=== PATIENT | female | born 1985 | race Caucasian/White ===

== ENCOUNTER → 2017-04-30 | Outpatient (CLI) | payer BC ==
[2017-04-30 10:49] LABS: Basophils % (A) 1 %; CH 35.8; CHCM 35.4; Eosinophils # (A) 0.1 k/uL (0-0.7); Eosinophils % (A) 1 %; HCT 37.3 % (34.0-46.0); HDW 2.81; Luc # (Auto) 0.11; Luc % (Auto) 1; Lymphocytes # (A) 1.7 k/uL (1.0-4.8); Lymphocytes % (A) 22 %; MCH 35.4 pg (25.0-35.0); MCHC 34.8 g/dL (31.0-37.0); MCV 101.8 fL (80.0-100.0); Macrocytosis Slight; Mean Platelet Volume 6.4; Monocytes # (A) 0.3 k/uL (0-1.0); Monocytes % (A) 4 %; Neutrophils # (A) 5.7 k/uL (1.3-7.7); Neutrophils % (A) 71 %; RBC 3.67 m/uL (3.80-5.40); RDW 13.5 % (11.5-15.5); WBC (Perox) 8.64
[2017-04-30 15:28] LABS: Treponemal Ab Non-Reactive (Non-Reactive)
== END | disposition home or self-care (01) ==
LOC: LABWHC1 09:10
PROVIDERS: ATTEND Midwife
DX: Z36 Encounter for antenatal screening of mother (principal)
CPT/HCPCS: 36415; 82950; 85025; 86780; 87390

== ENCOUNTER → 2017-05-10 | Outpatient (CLI) | payer BC ==
--- NOTE | 2017-05-10 12:47 | US ---
EXAMINATION TYPE: US pelvic limited DATE OF EXAM: 05/10/2017 COMPARISON: NONE CLINICAL HISTORY: R19.09 mass in groin,R10.30 LOWER ABD PAIN. Patient is 27 weeks and felt p alpable area within right side of her pubis, patient states she can feel is more when standing Varicose vessels noted at the area of complaint adjacent to uterus in superficial soft tissue. office closed from 12-1, attempted to call twice with no luck. I will try again after 1pm to get ne w order and relay results IMPRESSION: Site of clinical concern corresponds to a varicosity.
== END ==
LOC: RADUSWWP 11:52
PROVIDERS: ATTEND Internal Medicine Geriatric Medicine
DX: R10.30 Lower abdominal pain, unspecified (principal)
CPT/HCPCS: 76857

== ENCOUNTER 2017-07-15 12:08 | Emergency (ER) | payer BC ==
--- NOTE | 2017-07-15 12:41 | ED ---
General Adult HPI - General Chief complaint: Extremity Problem,Nontraumatic Stated complaint: Poss Blood Clot L Leg Time Seen by Provider: 07/15/17 12:27 Source: patient, RN notes reviewed Mode of arrival: ambulatory Limitations: no limitations - History of Present Illness Initial comments: Patient 32-year-old female who is approximately 37 weeks by ultrasound , who presents emergency room today with chief complaint of pain to the left side. She does admit that she felt severe leg cramp last night. She states she woke up this morning it was gone. She was at the gym earlier today had another cramp. She states she is worried about possible blood she doesn't that she's had some leg cramps but not anything as severe as this. States that this time she currently comfortable. She denies any other complaints or associated symptoms currently. Patient denies any recent fever, chills, shortness of breath , chest pain, back pain, abdominal pain, nausea or vomiting, numbness or tingling, dysuria or hematuria, constipation or diarrhea, headaches or visual changes, or any other complaints. - Related Data Home Medications Medication Instructions Recorded Confirmed Aspirin 81 mg PO HS 07/15/17 07/15/17 Cholecalciferol [Vitamin D3] 1,000 unit PO HS 07/15/17 07/15/17 Folic Acid 0.4 mg PO HS 07/15/17 07/15/17 Ipl-Xbpb-[id number] Acid 1 cap PO HS 07/15/17 07/15/17 [-U Capsule (formulary)] Progesterone, Micronized 200 mg PO HS 07/15/17 07/15/17 [Progesterone] Sertraline [Zoloft] 100 mg PO HS 07/15/17 07/15/17 Allergies Allergy/AdvReac Type Severity Reaction Status Date / Time No Known Allergies Allergy Verified 07/15/17 13:43 Review of Systems ROS Statement: Those systems with pertinent positive or pertinent negative responses have been documented in the HPI. ROS Other: All systems not noted in ROS Statement are negative. Past Medical History Past Medical History: No Reported History History of Any Multi-Drug Resistant Organisms: None Reported Additional Past Surgical History / Comment(s): right knee Past Psychological History: Anxiety Smoking Status: Never smoker Past Alcohol Use History: None Reported Past Drug Use History: None Reported General Exam - General Exam Comments Initial Comments: General: The patient is awake and alert, in no distress, and does not appear acutely ill. Eye: Pupils are equal, round and reactive to light, extra-ocular movements are intact. No nystagmus. There is normal conjunctiva bilaterally. No signs of icterus. Ears, nose, mouth and throat: There are moist mucous membranes and no oral lesions. Neck: The neck is supple, there is no tenderness or JVD. Cardiovascular: There is a regular rate and rhythm. No murmur, rub or gallop is appreciated. Respiratory: Lungs are clear to auscultation, respirations are non-labored, breath sounds are equal. No wheezes, stridor, rales, or rhonchi. Musculoskeletal: Normal ROM. Patient has negative Homans sign. Mild tenderness to the medial posterior distal third of left thigh. Strength 5/5. Sensation intact. Pulses equal bilaterally 2+. Neurological: A&O x 3. CN II-XII intact, There are no obvious motor or sensory deficits. Coordination appears grossly intact. Speech is normal. Skin: Skin is warm and dry and no rashes or lesions are noted. Psychiatric: Cooperative, appropriate mood & affect, normal judgment. Limitations: no limitations Course Vital Signs 07/15/17 12:18 Temperature 98.6 F Pulse Rate 105 H Respiratory 16 Rate Blood Pressure 158/69 O2 Sat by Pulse 98 Oximetry Medical Decision Making - Medical Decision Making Patient's ultrasound is negative for any evidence of a DVT. There was evidence of Rolueax will be treating the GSV and CFV. She'll be discharged home. Disposition Clinical Impression: Leg cramp Disposition: HOME SELF-CARE Condition: Good Instructions: Leg Cramps (ED) Additional Instructions: Please use medication as discussed. Please follow-up with family doctor in the next 2 days of symptoms have not improved. Please return to emergency room if the symptoms increase or worsen or for any other concerns. Referrals: Kvng Payton MD [Primary Care Provider] - 1-2 days Time of Disposition: 14:01
--- NOTE | 2017-07-15 13:46 | US ---
EXAMINATION TYPE: US venous doppler duplex LE LT DATE OF EXAM: 07/15/2017 1:32 PM COMPARISON: NONE CLINICAL HISTORY: Pain. left leg pain, varicose veins, pt is 37 weeks SIDE PERFORMED: Left TECHNIQUE: The lower extremity deep venous system is examined utilizing real time linear array sonog sy with graded compression, doppler sonography and color-flow sonography. VESSELS IMAGED: External Iliac Vein (EIV) Common Femoral Vein Deep Femoral Vein Greater Saphenous Vein * Femoral Vein Popliteal Vein Small Saphenous Vein * Proximal Calf Veins (* superficial vessels) Left Leg: Appears negative for DVT. Rouleaux flow seen in GSV at origin of CFV. Grayscale, color doppler, spectral doppler imaging performed of the deep veins of the lower extremiti es. There is normal flow, compressibility, vascular waveforms. IMPRESSION: No sonographic evidence of deep venous thrombosis within the left lower extremity.
[2017-07-15 13:55] VITALS: BP 127/58; PULSE 80; RESP 17; TEMP 97.9
== END 2017-07-15 14:11 | disposition home or self-care (01) ==
LOC: EC 12:08
DX: O99.89 Other specified diseases and conditions complicating pregnancy, childbirth and the puerperium (principal); M79.605 Pain in left leg; O99.343 Other mental disorders complicating pregnancy, third trimester; F41.9 Anxiety disorder, unspecified; Z3A.37 37 weeks gestation of pregnancy; Z79.82 Long term (current) use of aspirin; Z79.899 Other long term (current) drug therapy
CPT/HCPCS: 99283

== ENCOUNTER 2018-07-22 13:39 | Emergency (ER) | payer BC ==
[2018-07-22] MEDS ORDERED: SODIUM CHLORIDE 0.9% 1,000 ML IV STA (14:47)
[2018-07-22] MEDS ORDERED: KETOROLAC 30 MG/ML 1 ML VIAL IVP STA (14:47)
[2018-07-22] MEDS ORDERED: diphenhydrAMINE 50 MG/ML 1 ML VIAL IVP STA (14:47)
[2018-07-22] MEDS ORDERED: METOCLOPRAMIDE 5 MG/ML 2 ML VIAL IVP STA (14:47)
[2018-07-22] MEDS ORDERED: ACETAMINOPHEN TAB 500 MG TAB PO STA (14:47)
--- NOTE | 2018-07-22 14:58 | ED ---
Headache HPI - General Chief Complaint: Headache Stated Complaint: Migraine/Facial numbness Time Seen by Provider: 07/22/18 14:11 Source: RN notes reviewed, old records reviewed Mode of arrival: ambulatory Limitations: no limitations - History of Present Illness Initial Comments: [id number]-aclq-[id number] female presents for his pharmacy and she will complain of a right-sided headache, migraine. She reports earlier today she had some changes to her left of vision. She reports she has this typical aura with a migraine. Patient states that she also is having some tenderness over the right facial bones and sinuses. She does report she's been having upper respiratory congestion. She denies any fevers or chills. She reports that she's had multiple episodes of vomiting just migraine headache. - Related Data Home Medications Medication Instructions Recorded Confirmed Cholecalciferol [Vitamin D3] 1,000 unit PO HS 07/15/17 07/22/18 Folic Acid 0.4 mg PO HS 07/15/17 07/22/18 Kfq-Zzvi-Vknwj Acid 1 cap PO HS 07/15/17 07/22/18 [-U Capsule (formulary)] Sertraline [Zoloft] 100 mg PO HS 07/15/17 07/22/18 Aspirin/Acetaminophen/Caffeine 1 tab PO DAILY PRN 07/22/18 07/22/18 [Excedrin Migraine Caplet] Ibuprofen [Motrin Ib] 400 mg PO Q6H PRN 07/22/18 07/22/18 LORazepam [Ativan] 1 mg PO DIRECTED PRN 07/22/18 07/22/18 Magnesium 200 mg PO DAILY 07/22/18 07/22/18 Multivitamin,Therapeutic [Thera] 1 tab PO DAILY 07/22/18 07/22/18 Previous Rx's Medication Instructions Recorded Amoxic-Pot Clav 875-125Mg 1 tab PO Q12HR #20 tablet 07/22/18 [Augmentin 875-125] Ondansetron Odt [Zofran Odt] 4 mg PO Q8HR PRN #12 tab 07/22/18 Allergies Allergy/AdvReac Type Severity Reaction Status Date / Time alcohol AdvReac MIGRAINE Verified 07/22/18 14:13 Review of Systems ROS Statement: Those systems with pertinent positive or pertinent negative responses have been documented in the HPI. ROS Other: All systems not noted in ROS Statement are negative. Past Medical History Past Medical History: No Reported History History of Any Multi-Drug Resistant Organisms: None Reported Additional Past Surgical History / Comment(s): right knee Past Psychological History: Anxiety Smoking Status: Never smoker Past Alcohol Use History: None Reported Past Drug Use History: None Reported General Exam - General Exam Comments Initial Comments: 33-year-old female. Alert and oriented. No acute distress. Limitations: no limitations General appearance: alert, in no apparent distress Head exam: Present: atraumatic, normocephalic, normal inspection Eye exam: Present: normal appearance, PERRL, EOMI. Absent: scleral icterus, conjunctival injection, periorbital swelling ENT exam: Present: normal exam, mucous membranes moist, other (Tenderness over the right maxilla.) Neck exam: Present: normal inspection. Absent: tenderness, meningismus, lymphadenopathy Respiratory exam: Present: normal lung sounds bilaterally. Absent: respiratory distress, wheezes, rales, rhonchi, stridor Cardiovascular Exam: Present: regular rate, normal rhythm, normal heart sounds. Absent: systolic murmur, diastolic murmur, rubs, gallop, clicks GI/Abdominal exam: Present: soft, normal bowel sounds. Absent: distended, tenderness, guarding, rebound, rigid Extremities exam: Present: normal inspection, full ROM, normal capillary refill. Absent: tenderness, pedal edema, joint swelling, calf tenderness Back exam: Present: normal inspection Neurological exam: Present: alert, oriented X3, CN II-XII intact Psychiatric exam: Present: normal affect, normal mood Skin exam: Present: warm, dry, intact, normal color. 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 Patient is given IV fluids and migraine cocktail. She also complained earlier today of visual change of the left eye without result. She is presents consistent with her previous migraines before. Patient did have CT of her brain today. This is negative for any acute process. She has no other focal or lateralizing neurological deficits. She did have evidence of maxillary sinusitis over the right maxillary sinus and head CT. We'll treat the Patient for sinusitis. She does feel better after IV hydration and medications. Patient's family Patient understands treatment plan will comply. Return parameters were discussed. - Lab Data Result diagrams: 07/22/18 14:26 07/22/18 14:26 Lab Results 07/22/18 07/22/18 Range/Units 14:26 14:26 WBC 8.6 (3.8-10.6) k/uL RBC 4.45 (3.80-5.40) m/uL Hgb 14.7 (11.4-16.0) gm/dL Hct 42.1 (34.0-46.0) % MCV 94.7 (80.0-100.0) fL MCH 33.1 (25.0-35.0) pg MCHC 35.0 (31.0-37.0) g/dL RDW 11.9 (11.5-15.5) % Plt Count 274 (150-450) k/uL Neutrophils % 83 % Lymphocytes % 13 % Monocytes % 3 % Eosinophils % 1 % Basophils % 0 % Neutrophils # 7.1 (1.3-7.7) k/uL Lymphocytes # 1.1 (1.0-4.8) k/uL Monocytes # 0.3 (0-1.0) k/uL Eosinophils # 0.1 (0-0.7) k/uL Basophils # 0.0 (0-0.2) k/uL Sodium 136 L (137-145) mmol/L Potassium 3.8 (3.5-5.1) mmol/L Chloride 99 (98-107) mmol/L Carbon Dioxide 25 (22-30) mmol/L Anion Gap 12 mmol/L BUN 16 (7-17) mg/dL Creatinine 0.59 (0.52-1.04) mg/dL Est GFR (CKD-EPI)AfAm >90 (>60 ml/min/1.73 sqM) Est GFR (CKD-EPI)NonAf >90 (>60 ml/min/1.73 sqM) Glucose 125 H (74-99) mg/dL Calcium 9.4 (8.4-10.2) mg/dL - Radiology Data Radiology results: report reviewed Normal CT brain. Clinical correlation recommended for acute Mell maxillary sinus. Disposition Clinical Impression: Migraine aura, persistent, Sinusitis Disposition: HOME SELF-CARE Condition: Good Instructions: Acute Headache (ED) Additional Instructions: Patient has follow-up with primary care physician. Return to the emergency department if any alarming signs or symptoms occur. Prescriptions: Amoxic-Pot Clav 875-125Mg [Augmentin 875-125] 1 tab PO Q12HR #20 tablet Ondansetron Odt [Zofran Odt] 4 mg PO Q8HR PRN #12 tab PRN Reason: Nausea Is patient prescribed a controlled substance at d/c from ED?: No Referrals: Kvng Payton MD [Primary Care Provider] - 1-2 days Time of Disposition: 16:26
[2018-07-22] MEDS ORDERED: ORPHENADRINE 30 MG/ML 2 ML VIAL IVP STA (15:23)
--- NOTE | 2018-07-22 15:25 | CT ---
EXAMINATION TYPE: CT brain wo con DATE OF EXAM: 07/22/2018 COMPARISON: 12/19/2009 INDICATION: Migraine and visual changes. DLP: 796 mGycm, Automated exposure control for dose reduction was used. CONTRAST: None CT of the brain is performed utilizing 3 mm thick sections through the posterior fossa and 3 mm thick sections through the remaining calvarium. Study is performed within 24 hours of arrival to the hosp ital. No abnormal hyperdensity is present to suggest an acute intracranial hemorrhage. No mass lesion is evident. No acute infarcts are evident. Ventricles and sulci are appropriate for the patient age. There is near complete opacification of the right maxillary sinus. Correlate for right maxillary sinu sitis. Right septal deviation is present. Right septal spur is present. There is mucosal thickening t hrough anterior mid right ethmoid air cells. Very minimal mucosal thickening may be within the fronta l sinuses. Sphenoid sinuses appear clear. Mastoid air cells are clear. Similar findings appear to bee n present in 2009. IMPRESSIONS: 1. Normal CT Brain 2. Clinical correlation recommended for acute right maxillary sinusitis.
[2018-07-22 15:26] LABS: Basophils % (A) 0 %; Eosinophils # (A) 0.1 k/uL (0-0.7); Eosinophils % (A) 1 %; HCT 42.1 % (34.0-46.0); HGB 14.7 gm/dL (11.4-16.0); Lymphocytes # (A) 1.1 k/uL (1.0-4.8); Lymphocytes % (A) 13 %; MCH 33.1 pg (25.0-35.0); MCV 94.7 fL (80.0-100.0); Mean Platelet Volume 6.2; Monocytes # (A) 0.3 k/uL (0-1.0); Monocytes % (A) 3 %; Neutrophils # (A) 7.1 k/uL (1.3-7.7); Neutrophils % (A) 83 %; Platelet Count 274 k/uL (150-450); RBC 4.45 m/uL (3.80-5.40); RDW 11.9 % (11.5-15.5); WBC 8.6 k/uL (3.8-10.6)
[2018-07-22 15:38] VITALS: RESP 18
[2018-07-22 15:39] LABS: Anion Gap 12 mmol/L; Blood Urea Nitrogen 16 mg/dL (7-17); Calcium 9.4 mg/dL (8.4-10.2); Carbon Dioxide 25 mmol/L (22-30); Chloride 99 mmol/L (98-107); Glucose 125 mg/dL (74-99); Potassium 3.8 mmol/L (3.5-5.1); Sodium 136 mmol/L (137-145)
[2018-07-22] MEDS ORDERED: guaiFENesin-DM 600/30MG 1 EACH TAB.ER.12H PO STA (16:25)
[2018-07-22] MEDS ORDERED: AMOXIC-POT CLAV 875MG STARTER 2 EACH TABLET PO STA (16:25)
[2018-07-22] MEDS ORDERED: methylPREDNISolone SOD SUCCI 125 MG/2 ML VIAL IV STA (16:27)
[2018-07-22 17:29] VITALS: BP 103/57; PULSE 84; TEMP 98.9
== END 2018-07-22 17:29 | disposition home or self-care (01) ==
LOC: EC 13:39
DX: G43.509 Persistent migraine aura without cerebral infarction, not intractable, without status migrainosus (principal); J32.0 Chronic maxillary sinusitis; F41.9 Anxiety disorder, unspecified; Z79.899 Other long term (current) drug therapy; Z91.048 Other nonmedicinal substance allergy status
CPT/HCPCS: 99284; 96374; 96375 ×4; 36415; 80048; 85025; 70450; 96361; J1200; J2360; J2765; J2930; J1885

== ENCOUNTER 2018-09-27 11:16 | Emergency (ER) | payer BC ==
[2018-09-27 11:32] VITALS: TEMP 97.6
[2018-09-27] MEDS ORDERED: SODIUM CHLORIDE 0.9% 1,000 ML IV STA (12:02)
[2018-09-27 12:29] LABS: Appearance,Urine Clear (Clear); Bilirubin,Urine Negative (Negative); Blood,Urine Negative (Negative); Color,Urine Light Yellow; Glucose,Urine (UA) Negative (Negative); Ketones,Urine Negative (Negative); Leukocyte Esterase,Urine Negative (Negative); Nitrite,Urine Negative (Negative); PH, Urine 6.5 (5.0-8.0); Protein,Urine Negative (Negative); Specific Gravity,Urine 1.002 (1.001-1.035); Urobilinogen,Urine <2.0 mg/dL (<2.0)
[2018-09-27 12:35] LABS: Basophils % (A) 1 %; Eosinophils # (A) 0.1 k/uL (0-0.7); Eosinophils % (A) 2 %; HCT 43.6 % (34.0-46.0); HGB 15.1 gm/dL (11.4-16.0); Lymphocytes # (A) 1.7 k/uL (1.0-4.8); Lymphocytes % (A) 37 %; MCH 33.2 pg (25.0-35.0); MCHC 34.7 g/dL (31.0-37.0); MCV 95.7 fL (80.0-100.0); Monocytes # (A) 0.2 k/uL (0-1.0); Monocytes % (A) 4 %; Neutrophils # (A) 2.5 k/uL (1.3-7.7); Neutrophils % (A) 54 %; Platelet Count 274 k/uL (150-450); RBC 4.55 m/uL (3.80-5.40); RDW 11.9 % (11.5-15.5); WBC 4.6 k/uL (3.8-10.6)
[2018-09-27 12:40] LABS: ALT 46 U/L (9-52); AST 84 U/L (14-36); Albumin 4.3 g/dL (3.5-5.0); Alkaline Phosphatase 67 U/L (38-126); Amylase 94 U/L (30-110); Anion Gap 8 mmol/L; Blood Urea Nitrogen 14 mg/dL (7-17); Calcium 9.4 mg/dL (8.4-10.2); Carbon Dioxide 28 mmol/L (22-30); Chloride 102 mmol/L (98-107); Glucose 92 mg/dL (74-99); Lipase 250 U/L (23-300); Potassium 4.2 mmol/L (3.5-5.1); Sodium 138 mmol/L (137-145); Total Bilirubin 0.4 mg/dL (0.2-1.3); Total Protein 7.2 g/dL (6.3-8.2)
--- NOTE | 2018-09-27 13:06 | ED ---
Abdominal Pain HPI - General Chief Complaint: Abdominal Pain Stated Complaint: abdominal pain/diarrhea Time Seen by Provider: 09/27/18 11:36 Source: patient, RN notes reviewed Mode of arrival: ambulatory Limitations: no limitations - History of Present Illness Initial Comments: 33-year-old female presents emergency Department chief complaint of left-sided abdominal pain. Patient states that she doesn't some pain that is ago and then she developed some diarrhea. Patient states she went to urgent care and was referred here. She has had a colonoscopy in the past no acute findings. Denies any fever or chills. She states that the pain is subsided some at this time. No hematuria no dysuria no melena hematochezia no hematemesis no coffee- ground emesis. Denies any nausea vomiting. Patient states nothing makes the pain feel better or worse. She states that the physician that saw her at urgent care told her that they felt lump in her left lower quadrant. - Related Data Home Medications Medication Instructions Recorded Confirmed Cholecalciferol [Vitamin D3] 1,000 unit PO HS 07/15/17 09/27/18 Folic Acid 0.4 mg PO HS 07/15/17 09/27/18 Ibuprofen [Motrin Ib] 400 mg PO Q6H PRN 07/22/18 09/27/18 LORazepam [Ativan] 0.5 mg PO DIRECTED PRN 07/22/18 09/27/18 Multivitamin,Therapeutic [Thera] 1 tab PO DAILY 07/22/18 09/27/18 Sertraline HCl [Zoloft] 150 mg PO DAILY 09/27/18 09/27/18 Allergies Allergy/AdvReac Type Severity Reaction Status Date / Time alcohol AdvReac MIGRAINE Verified 09/27/18 11:58 Review of Systems ROS Statement: Those systems with pertinent positive or pertinent negative responses have been documented in the HPI. ROS Other: All systems not noted in ROS Statement are negative. Past Medical History Past Medical History: No Reported History History of Any Multi-Drug Resistant Organisms: None Reported Past Surgical History: Orthopedic Surgery Additional Past Surgical History / Comment(s): right knee Past Psychological History: Anxiety Smoking Status: Never smoker Past Alcohol Use History: None Reported Past Drug Use History: None Reported General Exam Limitations: no limitations General appearance: alert, in no apparent distress Head exam: Present: atraumatic, normocephalic, normal inspection Eye exam: Present: normal appearance, PERRL, EOMI. Absent: scleral icterus, conjunctival injection, periorbital swelling Neck exam: Present: normal inspection. Absent: tenderness, meningismus, lymphadenopathy Respiratory exam: Present: normal lung sounds bilaterally. Absent: respiratory distress, wheezes, rales, rhonchi, stridor Cardiovascular Exam: Present: regular rate, normal rhythm, normal heart sounds. Absent: systolic murmur, diastolic murmur, rubs, gallop, clicks GI/Abdominal exam: Present: soft, tenderness (Mild left lower quadrant), normal bowel sounds. Absent: distended, guarding, rebound, rigid Back exam: Absent: CVA tenderness (R), CVA tenderness (L) Skin exam: Present: warm, dry, intact, normal color. Absent: rash Course Vital Signs 09/27/18 09/27/18 11:28 13:31 Temperature 97.6 F Pulse Rate 57 L 80 Respiratory 18 15 Rate Blood Pressure 115/71 106/62 O2 Sat by Pulse 100 100 Oximetry Medical Decision Making - Medical Decision Making 33-year-old female presented from chief complaint of left lower quadrant abdominal pain. Patient sent from urgent care. Lab work, CT were ordered along with urinalysis. Labs are unremarkable, CT is unremarkable. There were concerns for possible appendicitis versus ovarian mass or subcutaneous mass. This is not evident. Patient states her pain is stable has been no repeat episodes of diarrhea. Patient will be discharged with close follow-up. - Lab Data Result diagrams: 09/27/18 12:13 09/27/18 12:13 Lab Results 09/27/18 09/27/18 09/27/18 Range/Units 12:13 12:13 12:13 WBC 4.6 (3.8-10.6) k/uL RBC 4.55 (3.80-5.40) m/uL Hgb 15.1 (11.4-16.0) gm/dL Hct 43.6 (34.0-46.0) % MCV 95.7 (80.0-100.0) fL MCH 33.2 (25.0-35.0) pg MCHC 34.7 (31.0-37.0) g/dL RDW 11.9 (11.5-15.5) % Plt Count 274 (150-450) k/uL Neutrophils % 54 % Lymphocytes % 37 % Monocytes % 4 % Eosinophils % 2 % Basophils % 1 % Neutrophils # 2.5 (1.3-7.7) k/uL Lymphocytes # 1.7 (1.0-4.8) k/uL Monocytes # 0.2 (0-1.0) k/uL Eosinophils # 0.1 (0-0.7) k/uL Basophils # 0.0 (0-0.2) k/uL Sodium 138 (137-145) mmol/L Potassium 4.2 (3.5-5.1) mmol/L Chloride 102 (98-107) mmol/L Carbon Dioxide 28 (22-30) mmol/L Anion Gap 8 mmol/L BUN 14 (7-17) mg/dL Creatinine 0.70 (0.52-1.04) mg/dL Est GFR (CKD-EPI)AfAm >90 (>60 ml/min/1.73 sqM) Est GFR (CKD-EPI)NonAf >90 (>60 ml/min/1.73 sqM) Glucose 92 (74-99) mg/dL Calcium 9.4 (8.4-10.2) mg/dL Total Bilirubin 0.4 (0.2-1.3) mg/dL AST 84 H (14-36) U/L ALT 46 (9-52) U/L Alkaline Phosphatase 67 (38-126) U/L Total Protein 7.2 (6.3-8.2) g/dL Albumin 4.3 (3.5-5.0) g/dL Amylase 94 (30-110) U/L Lipase 250 (23-300) U/L Urine Color Urine Appearance (Clear) Urine pH (5.0-8.0) Ur Specific [place] (1.001-1.035) Urine Protein (Negative) Urine Glucose (UA) (Negative) Urine Ketones (Negative) Urine Blood (Negative) Urine Nitrite (Negative) Urine Bilirubin (Negative) Urine Urobilinogen (<2.0) mg/dL Ur Leukocyte Esterase (Negative) Urine HCG, Qual Not Detected (Not Detectd) 09/27/18 Range/Units 12:13 WBC (3.8-10.6) k/uL RBC (3.80-5.40) m/uL Hgb (11.4-16.0) gm/dL Hct (34.0-46.0) % MCV (80.0-100.0) fL MCH (25.0-35.0) pg MCHC (31.0-37.0) g/dL RDW (11.5-15.5) % Plt Count (150-450) k/uL Neutrophils % % Lymphocytes % % Monocytes % % Eosinophils % % Basophils % % Neutrophils # (1.3-7.7) k/uL Lymphocytes # (1.0-4.8) k/uL Monocytes # (0-1.0) k/uL Eosinophils # (0-0.7) k/uL Basophils # (0-0.2) k/uL Sodium (137-145) mmol/L Potassium (3.5-5.1) mmol/L Chloride (98-107) mmol/L Carbon Dioxide (22-30) mmol/L Anion Gap mmol/L BUN (7-17) mg/dL Creatinine (0.52-1.04) mg/dL Est GFR (CKD-EPI)AfAm (>60 ml/min/1.73 sqM) Est GFR (CKD-EPI)NonAf (>60 ml/min/1.73 sqM) Glucose (74-99) mg/dL Calcium (8.4-10.2) mg/dL Total Bilirubin (0.2-1.3) mg/dL AST (14-36) U/L ALT (9-52) U/L Alkaline Phosphatase (38-126) U/L Total Protein (6.3-8.2) g/dL Albumin (3.5-5.0) g/dL Amylase (30-110) U/L Lipase (23-300) U/L Urine Color Light Yellow Urine Appearance Clear (Clear) Urine pH 6.5 (5.0-8.0) Ur Specific [place] 1.002 (1.001-1.035) Urine Protein Negative (Negative) Urine Glucose (UA) Negative (Negative) Urine Ketones Negative (Negative) Urine Blood Negative (Negative) Urine Nitrite Negative (Negative) Urine Bilirubin Negative (Negative) Urine Urobilinogen <2.0 (<2.0) mg/dL Ur Leukocyte Esterase Negative (Negative) Urine HCG, Qual (Not Detectd) Disposition Clinical Impression: Abdominal pain, Diarrhea Disposition: HOME SELF-CARE Condition: Stable Instructions: Abdominal Pain (ED) Additional Instructions: Please return to the Emergency Department if symptoms worsen or any other concerns. Is patient prescribed a controlled substance at d/c from ED?: No Referrals: Kvng Payton MD [Primary Care Provider] - 1-2 days Roger Cutler MD [STAFF PHYSICIAN] - 1-2 days Time of Disposition: 14:02
--- NOTE | 2018-09-27 13:32 | CT ---
EXAMINATION TYPE: CT abdomen pelvis w con DATE OF EXAM: 09/27/2018 COMPARISON: None HISTORY: LLQ pain, diarrhea, primary care physician feels a mass CT DLP: 461.2 mGycm CONTRAST: CT scan of the abdomen and pelvis is performed without Oral Contrast and with IV Contrast, patient in jected with 100 mL of Isovue 300. FINDINGS: LUNG BASES-: No visible nodule. No infiltrate. LIVER/GB: No calcified gallstones. No space occupying hepatic lesion. Biliary tree is of normal ca liber. Splenic granulomas noted. PANCREAS: No inflammation. No distinct mass. SPLEEN: Splenomegaly measuring 13.4 cm AP dimension. Splenic granulomas noted. No lesion seen. ADRENALS: No nodule. No thickening. KIDNEYS/BLADDER: No hydronephrosis. No nephrolithiasis. No distinct renal mass. Urinary bladder g rossly unremarkable. BOWEL: There is nonvisualization of the appendix. The cecum is located deep within the right hemipelv is. Correlate clinically for exclusion of appendicitis. There is a small amount of free fluid within the pelvis. Normal bowel caliber. No inflammation. GENITAL ORGANS: No uterine or adnexal mass identified. LYMPH NODES: No greater than 1cm abdominal or pelvic lymph nodes are appreciated. AORTA: No significant abnormality. OSSEOUS STRUCTURES: No significant abnormality is seen. OTHER: No significant additional abnormality is seen. IMPRESSION: 1. No definite inflammatory process seen however there is nonvisualization of the appendix. The cecum is located deep within the pelvis where there is free fluid. Exclusion of acute appendicitis should be made on a clinical basis.
[2018-09-27 14:32] VITALS: BP 109/59; PULSE 75; RESP 16
== END 2018-09-27 14:35 | disposition home or self-care (01) ==
LOC: EC 11:16
DX: R10.32 Left lower quadrant pain (principal); R19.7 Diarrhea, unspecified; F41.9 Anxiety disorder, unspecified; Z91.048 Other nonmedicinal substance allergy status; Z79.899 Other long term (current) drug therapy
CPT/HCPCS: 36415; 80053; 82150; 83690; 85025; 81003; 81025; 74177; 99284; 96360; Q9967